=== PATIENT | female | born 1945 | race African-American/Black ===

== ENCOUNTER → 2017-03-02 | Day surgery (SDC) | payer MEDICARE ==
[~2017-03-02] MED LIST: HYDROmorphone 2 MG/ML VIAL IV; IV RINGERS,LACTATED 1000ML 1,000 ML IV; LIDOCAINE 1% PF 2 ML VIAL. ID; LIDOCAINE 2% PF Vial for OR 5 ML VIAL.; MIDAZOLAM HCL/PF 2 MG/2 ML VIAL. IV; MORPHINE SULFATE 2 MG/ML DISP.SYRIN. IV; ONDANSETRON PF 4 MG/2 ML VIAL. IV; PROCHLORPERAZINE 10 MG/2 ML VIAL. IV; PROPOFOL 40 ML IV; fentaNYL PF VIAL 100 MCG/2 ML VIAL IV
[2017-03-02] MEDS: IV RINGERS,LACTATED 1000ML 1,000 ML IV (08:00)
== END | disposition home or self-care (01) ==
LOC: SURG 07:28
DX: Z12.11 Encounter for screening for malignant neoplasm of colon (principal); K64.0 First degree hemorrhoids; D64.9 Anemia, unspecified; I10 Essential (primary) hypertension; E11.9 Type 2 diabetes mellitus without complications; Z90.710 Acquired absence of both cervix and uterus; Z86.39 Personal history of other endocrine, nutritional and metabolic disease
CPT/HCPCS: 45378; J2704